=== PATIENT | female | born 1960 | race Native Hawaiian/Other Pacific Islander ===

== ENCOUNTER 2018-07-06 09:48 | Outpatient (CLI) | payer OTHER ==
[2018-07-06 10:06] LABS: PLATELET COUNT 251 K/uL (152-353)
[2018-07-06 10:22] LABS: POTASSIUM 4.2 mmol/L (3.6-5.2)
== END 2018-07-06 23:54 | disposition home or self-care (01) ==
LOC: LABW 09:48
DX: R30.0 Dysuria (principal); I10 Essential (primary) hypertension
CPT/HCPCS: 36415; 80053; 80061; 84439; 84443; 85027; 87077; 87086; 87088; 87186

== ENCOUNTER 2018-07-19 08:08 | Outpatient (CLI) | payer OTHER | END 2018-07-19 22:20 | disposition home or self-care (01) | LOC: LABW 08:08 | DX: R73.01 Impaired fasting glucose (principal) | CPT/HCPCS: 36415; 83036 ==

== ENCOUNTER 2018-07-28 07:22 | Outpatient (CLI) | payer OTHER | END 2018-07-28 22:06 | disposition home or self-care (01) | LOC: NM 07:22 | DX: Z12.31 Encounter for screening mammogram for malignant neoplasm of breast (principal); R07.9 Chest pain, unspecified | CPT/HCPCS: A9500; J2785 ==

== ENCOUNTER 2018-08-08 09:50 | Emergency (ER) | payer OTHER ==
[~2018-08-08] VITALS: Ht 165.1 cm; Wt 72.6 kg
[2018-08-08 09:56] VITALS: TEMP 97.9
[2018-08-08 11:09] LABS: PLATELET COUNT 209 K/uL (152-353)
[2018-08-08 11:16] LABS: POTASSIUM 4.4 mmol/L (3.6-5.2)
[2018-08-08 12:05] VITALS: BP 138/88
== END 2018-08-08 12:05 | disposition home or self-care (01) ==
LOC: ED 09:50
DX: K12.1 Other forms of stomatitis (principal); N39.0 Urinary tract infection, site not specified
CPT/HCPCS: 36415; 80053; 81000; 85027; 87077; 87081; 87086; 87088; 87186; 87880; 99283

== ENCOUNTER 2018-08-15 10:48 | Outpatient (CLI) | payer OTHER | END 2018-08-15 19:56 | disposition home or self-care (01) | LOC: MAMMO 10:48 | DX: N64.89 Other specified disorders of breast (principal) ==

== ENCOUNTER 2018-08-22 12:47 | Outpatient (CLI) | payer OTHER | END 2018-08-22 19:23 | disposition home or self-care (01) | LOC: US 12:47 | DX: N64.89 Other specified disorders of breast (principal) ==

== ENCOUNTER → 2019-05-25 | Emergency (ER) | payer OTHER ==
[~2019-05-25] VITALS: Ht 152.4 cm; Wt 68.9 kg
[2019-05-25 12:10] VITALS: BP 104/65; TEMP 98
== END ==
LOC: ED 10:13
DX: T83.9XXA Unspecified complication of genitourinary prosthetic device, implant and graft, initial encounter (principal)
CPT/HCPCS: 99282

== ENCOUNTER 2019-07-21 11:04 | Outpatient (CLI) | payer OTHER | END 2019-07-21 22:55 | disposition home or self-care (01) | LOC: MRI 11:04 | DX: M54.2 Cervicalgia (principal) ==

== ENCOUNTER 2021-01-14 17:46 | Emergency (ER) | payer OTHER ==
[~2021-01-14] VITALS: Ht 152.4 cm; Wt 74.8 kg
[2021-01-14 19:40] VITALS: BP 152/98; TEMP 98.9
== END 2021-01-14 19:40 | disposition home or self-care (01) ==
LOC: ED 17:46
DX: G89.4 Chronic pain syndrome (principal); M79.7 Fibromyalgia
CPT/HCPCS: 96372; 99283; J1885

== ENCOUNTER 2021-03-12 09:31 | Outpatient (CLI) | payer OTHER | END 2021-03-12 19:19 | disposition home or self-care (01) | LOC: RESP 09:31 | PROVIDERS: ATTEND Internal Medicine Sleep Medicine | DX: J43.2 Centrilobular emphysema (principal); R91.8 Other nonspecific abnormal finding of lung field ==

== ENCOUNTER 2021-08-08 13:55 | Outpatient (CLI) | payer OTHER | END 2021-08-08 19:07 | disposition home or self-care (01) | LOC: MRI 13:55 | PROVIDERS: ATTEND Neurological Surgery | DX: M54.16 Radiculopathy, lumbar region (principal); M54.12 Radiculopathy, cervical region ==

== ENCOUNTER 2022-06-15 15:50 | Outpatient (CLI) | payer OTHER | END 2022-06-15 19:02 | disposition home or self-care (01) | LOC: CT 15:50 | PROVIDERS: ATTEND Internal Medicine Sleep Medicine | DX: F17.210 Nicotine dependence, cigarettes, uncomplicated (principal) ==

== ENCOUNTER 2022-09-04 13:45 | Outpatient (CLI) | payer OTHER | END 2022-09-04 19:32 | disposition home or self-care (01) | LOC: RESP 13:45 | PROVIDERS: ATTEND Pain Medicine Interventional Pain Medicine | DX: Z79.899 Other long term (current) drug therapy (principal) | CPT/HCPCS: 93005 ==